=== PATIENT | female | born 1960 | race Caucasian/White ===

== ENCOUNTER 2016-12-24 16:02 | Emergency (ER) | payer OTHER ==
[2016-12-24 16:24] VITALS: BP 130/86
--- NOTE | 2016-12-24 16:40 | ED Physician Documentation ---
PD HPI SKIN - Stated complaint Stated Complaint: EYES SWOLLEN - Chief complaint Chief Complaint: Allergic Rx - History obtained from History obtained from: Patient - History of Present Illness Timing - onset: Other (2 days ago she had cosmetic tattooing on her eyebrows, but 24 hours later developed angioedema Of the eyelids, especially the right. She also had some tattooing on the lips and has a minor reaction below the left lip. There is no associated sore throat, chest pain, shortness of breath, or generalized rash.) Review of Systems Constitutional: reports: Reviewed and negative Eyes: reports: Irritation. denies: Loss of vision, Decreased vision, Photophobia Ears: denies: Loss of hearing, Ear pain PD PAST MEDICAL HISTORY - Present Medications Home Medications: Ambulatory Orders Medication Instructions Recorded Confirmed Levothyroxine [Synthroid] 1 tab PO DAILY 12/24/16 12/24/16 Sertraline HCl [Zoloft] 2 tab PO DAILY 12/24/16 12/24/16 Simvastatin 1 tab PO DAILY 12/24/16 12/24/16 hydrOXYzine PAMOATE [Vistaril] 1 - 2 tab PO Q6H PRN #20 capsule 12/24/16 predniSONE [Deltasone] 60 mg PO DAILY 5 Days tablet 12/24/16 traZODone [Desyrel] 50 mg PO HS 12/24/16 12/24/16 - Allergies Allergies/Adverse Reactions: Allergies Allergy/AdvReac Type Severity Reaction Status Date / Time methylchloroisothiazolinone Allergy Intermediate Edema Verified 12/24/16 16:19 Sulfa (Sulfonamide Allergy Mild Rash Verified 12/24/16 16:18 Antibiotics) PD ED PE NORMAL - Vitals Vital signs reviewed: Yes - General General: Alert and oriented X 3, No acute distress - HEENT HEENT: PERRL, EOMI, Other (She has angioedema that is mild to moderate of all of her eyelids, the right upper and lower more than the left upper and lower.) - Neck Neck: Supple, no meningeal sign, No bony TTP - Neuro Neuro: Alert and oriented X 3, Normal speech - Psych Psych: Normal mood, Normal affect Results - Vitals Vitals: Vital Signs - 24 hr 12/24/16 16:11 Temperature 36.9 C Heart Rate 71 Respiratory 16 Rate Blood Pressure 130/86 H O2 Saturation 100 Oxygen O2 Source Room air Departure - Departure Disposition: Home, Self Care Clinical Impression: Angioedema Qualifiers: Encounter type: initial encounter Qualified Code(s): T78.3XXA - Angioneurotic edema, initial encounter Condition: Good Record reviewed to determine appropriate education?: Yes Instructions: ED Allergic Reaction Local Other Prescriptions: hydrOXYzine PAMOATE [Vistaril] 1 - 2 tab PO Q6H PRN #20 capsule PRN Reason: Itching predniSONE [Deltasone] 60 mg PO DAILY 5 Days tablet Comments: Your blood pressure was elevated today on check into the emergency department. This does not mean that you have hypertension, it is a common phenomenon to come to the emergency department and have elevated blood pressure. I recommend that she see your primary care physician within the week to have it rechecked when you are feeling better. Call your doctor to arrange a follow-up appointment, make the next available appointment. In the interim, return anytime if worse or if new symptoms develop.
== END 2016-12-24 16:59 | disposition home or self-care (01) ==
LOC: ED 16:02
DX: T78.3XXA Angioneurotic edema, initial encounter (principal); R03.0 Elevated blood-pressure reading, without diagnosis of hypertension
CPT/HCPCS: 99283